=== PATIENT | male | born 1975 | race Caucasian/White ===

== ENCOUNTER → 2024-06-19 08:36 | Outpatient (REF) | payer BC, SELFPAY | LOC: EMG 08:36 | PROVIDERS: ATTENDING PHYSICIAN Family Medicine | DX: R20.2 Paresthesia of skin (principal); R20.0 Anesthesia of skin | CPT/HCPCS: 95886; 95911 ==

== ENCOUNTER → 2024-07-24 06:49 | Outpatient (REF) | payer BC, SELFPAY | LOC: RAD 06:49 | PROVIDERS: ATTENDING PHYSICIAN Family Medicine | DX: R74.8 Abnormal levels of other serum enzymes (principal); Z87.19 Personal history of other diseases of the digestive system | CPT/HCPCS: 76700 ==

== ENCOUNTER → 2024-10-23 10:07 | Outpatient (REF) | payer BC, SELFPAY | LOC: RAD 10:07 | PROVIDERS: ATTENDING PHYSICIAN Family Medicine | DX: M25.571 Pain in right ankle and joints of right foot (principal) | CPT/HCPCS: 73610 ==